=== PATIENT | female | born 1960 | race American Indian/Alaskan Native ===

== ENCOUNTER 2018-03-19 06:13 | Observation (INO) | payer OTHER ==
[2018-03-17 12:05] LABS: Basophils # (Auto) 0.1 K/mm3 (0.0-0.1); Basophils % (Auto) 1.4 % (0.0-1.8); Eosinophils # (Auto) 0.1 K/mm3 (0.0-0.4); Eosinophils % (Auto) 2.6 % (0.0-4.3); Hematocrit 38.8 % (30.3-42.9); Hemoglobin 12.6 gm/dl (10.1-14.3); Lymphocytes # (Auto) 2.5 K/mm3 (1.2-5.4); Lymphocytes % (Auto) 50.3 % (13.4-35.0); Mean Corpuscular HGB Conc 33 % (30-34); Mean Corpuscular Volume 90 fl (79-97); Monocytes # (Auto) 0.5 K/mm3 (0.0-0.8); Monocytes % (Auto) 9.9 % (0.0-7.3); Platelet Count 208 K/mm3 (140-440); Red Blood Count 4.33 M/mm3 (3.65-5.03); Red Cell Distribution Width 13.9 % (13.2-15.2)
--- NOTE | 2018-03-17 12:08 | Anesthesia Consultation ---
Anesthesia Consult and Med Hx Date of service: 03/19/18 - Airway Anesthetic Teeth Evaluation: Good ROM Head & Neck: Adequate Mental/Hyoid Distance: Adequate Mallampati Class: Class II Intubation Access Assessment: Good - Pulmonary Exam CTA: Yes - Cardiac Exam Cardiac Exam: No Murmur - Pre-Operative Health Status ASA Pre-Surgery Classification: ASA2 Proposed Anesthetic Plan: General Nerve Block: PEC - Pulmonary Hx Smoking: No Hx Sleep Apnea: No (JADIEL PRE SCREEN LOW RISK) - Cardiovascular System Hx Hypertension: No - Other Systems Hx Cancer: Yes
[2018-03-17 12:19] LABS: BUN/Creatinine Ratio 13; Blood Urea Nitrogen 9 mg/dL (7-17); Calcium 9.6 mg/dL (8.4-10.2); Hemolysis Index 13
[2018-03-19] MEDS ORDERED: NEURONTIN ONE (06:32)
[2018-03-19] MEDS ORDERED: LACTATED RINGERS 1,000 ML ONE (06:32)
[2018-03-19] MEDS ORDERED: VERSED ONE (06:33)
[2018-03-19] MEDS ORDERED: NACL BACTERIOSTATIC INFILTRATI ONE (06:38)
[2018-03-19] MEDS ORDERED: DECADRON ONE (06:52)
[2018-03-19] MEDS ORDERED: MARCAINE 0.25% INFILTRATI ONE (06:52)
[2018-03-19] MEDS ORDERED: XYLOCAINE 1% 20 mL ONE (06:52)
[2018-03-19] MEDS ORDERED: PEPCID PO NR (07:00)
[2018-03-19] MEDS ORDERED: NEURONTIN PO NR ×2 (07:00)
[2018-03-19] MEDS ORDERED: ANCEF/STERILE WATER 2 GM/20 ML IV NR (07:00)
[2018-03-19] MEDS ORDERED: LACTATED RINGERS 1,000 ML IV SCH ×2 (07:00→11:00)
[2018-03-19] MEDS ORDERED: VERSED IV NR (07:00)
[2018-03-19] MEDS ORDERED: SUBLIMAZE ONE (07:08)
[2018-03-19] MEDS ORDERED: DIPRIVAN 10 MG/ML IV ONE (07:09)
[2018-03-19] MEDS ORDERED: ZEMURON IV ONE (07:18)
[2018-03-19] MEDS ORDERED: QUELICIN ONE (07:18)
[2018-03-19] MEDS ORDERED: ZOFRAN ONE (07:18)
[2018-03-19] MEDS ORDERED: XYLOCAINE MPF 2% ONE (07:18)
[2018-03-19] MEDS ORDERED: ANCEF ONE (07:45)
[2018-03-19] MEDS ORDERED: GENTAMICIN ONE (07:45)
[2018-03-19] MEDS ORDERED: BACITRACIN ONE (07:46)
[2018-03-19] MEDS ORDERED: METHYLENE BLUE ONE (07:46)
[2018-03-19] MEDS ORDERED: NACL ONE (07:46)
[2018-03-19] MEDS ORDERED: ZOFRAN IV PRN ×2 (08:55→10:55)
[2018-03-19] MEDS ORDERED: NACL 0.9% 1000 ML IR ONE (09:00)
[2018-03-19] MEDS ORDERED: GENTAMICIN IV ONE (09:00)
[2018-03-19] MEDS ORDERED: ANCEF IV ONE ×2 (09:00)
[2018-03-19] MEDS ORDERED: NACL 0.9% IR ONE (09:00)
--- NOTE | 2018-03-19 10:50 | Short Stay Summary ---
Short Stay Documentation Date of service: 03/19/18 - History H&P: obtained from office - Allergies and Medications Current Medications: Allergies PORK Adverse Reaction (Uncoded 03/19/18 06:42) Vomiting Home Medications Medication Instructions Recorded Confirmed Last Taken Type Ascorbic Acid [Vitamin C] 1,000 mg PO DAILY 03/13/18 03/13/18 03/18/18 History Multivit-Min/Iron/Folic/Lutein 1 each PO DAILY 03/13/18 03/13/18 03/18/18 History [Centrum Silver Women Tablet] Active Medications Cefazolin Sodium (Ancef/Sterile Water 2 Gm/20 Ml) 2 gm IV PREOP NR Stop: 03/19/18 23:59 Fentanyl (Sublimaze) 50 mcg IV Q5MIN PRN PRN Reason: Pain , Severe (7-10) Stop: 03/19/18 16:00 Gabapentin (Neurontin) 600 mg PO PREOP NR Stop: 03/19/18 23:45 Last Admin: 03/19/18 06:52 Dose: 600 mg Documented by: Lactated Ringer's (Lactated Ringers) 1,000 mls @ 100 mls/hr IV DIRECT FÉLIX Last Admin: 03/19/18 06:45 Dose: 100 mls/hr Documented by: Ondansetron HCl (Zofran) 4 mg IV ONCE PRN PRN Reason: Nausea And Vomiting - Brief post op/procedure progress note Date of procedure: 03/19/18 Pre-op diagnosis: Multicentric right breast cancer Post-op diagnosis: same Procedure: Right total mastectomy with SLNB Anesthesia: GETA Findings: Left total mastectomy specimen with 2 clips present; x5 SLNs negative on frozen section of pathology Surgeon: LUZ ELENA CHURCHILL Estimated blood loss: minimal Pathology: list (rigth total mastectomy; x5 SLNs) Specimen disposition: to lab Condition: stable - Disposition Condition at discharge: Good Disposition: DC/TX-02 SHRT-TRM GEN HOSP IP Short Stay Discharge Plan Activity: other (no heavy lifting) Diet: regular Wound: keep clean and dry, other Follow up with: ROBERTH MCINTOSH MD [Primary Care Provider] - 7 Days LUZ ELENA CHURCHILL MD [Staff Physician] - 7 Days
[2018-03-19] MEDS ORDERED: REGLAN PO PRN (10:55)
[2018-03-19] MEDS ORDERED: SODIUM CHLORIDE FLUSH SYRINGE 10 ML IV PRN (10:55)
[2018-03-19] MEDS ORDERED: BENADRYL PO PRN (10:55)
[2018-03-19] MEDS ORDERED: TYLENOL PO PRN (10:55)
--- NOTE | 2018-03-19 10:55 | Operative Report ---
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 Anesthesia: Gen. Findings: Right breast clips present within right total mastectomy. 5 sentinel lymph nodes identified and negative for malignancy on frozen section of pathology Complications: None Drains: per plastic surgery Estimated blood loss: Minimal Disposition: PACU in good condition Indications for operative procedure: This is a 57-year-old lady with multicentric stage I right breast cancer of the upper inner and lower inner quadrant, [id number] ER/CO positive. Recommendations were to proceed with right mastectomy given multicentric right breast cancer. She wished to proceed with the above procedure as well as immediate tissue signal manager placement. Procedure in detail: Anesthesia placed right pectoral muscle block prior to going to the operating room. The patient was taken to the operating room and was placed supine. Gen. anesthesia was administered. The right nipple was injected with radioisotope. Right chest and axilla was prepped and draped in the normal sterile operative fashion. Timeout was performed. Typical mastectomy incision marking was made. Attention was taken towards the right breast. A gamma probe was inserted into the axilla to identify the sentinel lymph node location with no uptake noted. A skin incision was made with a 10 blade knife and dissection taken down to the subcutaneous tissues. First began raising of the superior flap to the level of t he clavicle superiorly and posteriorly to the pectoralis muscle. Followed by raising of the medial flap to the level of the sternum and posteriorly to the pectoralis muscle. Followed by raising of the lateral flap to the level of the latissimus dorsi muscle and taken down posteriorly. The gamma probe was inserted into the axilla, the axillary fascia was opened and 5 sentinel lymph nodes were identified with the gamma probe that were dissected free and sent to pathology. All remaining counts were less than 10% of the highest SLN. All 5 SLNs were negative for malignancy on frozen section of pathology. Then proceeded with raising of the inferior flap to the level of the inframammary fold taken posterior to the pectoralis muscle. The mastectomy/breast was removed from the pectoralis muscle without incident. The specimen was appropriately marked and sent to radiology with findings of breast clips present and sent to pathology. Hemostasis was noted. The chest wall was irrigated and suctioned. Hemostasis was obtained and plastic surgery then proceeded with tissue signal manager placement. She tolerated surgery very well.
[2018-03-19] MEDS ORDERED: MORPHINE IV PRN (10:57)
[2018-03-19] MEDS ORDERED: COLACE PO SCH (11:00)
[2018-03-19] MEDS ORDERED: BLOXIVERZ ONE (11:11)
[2018-03-19] MEDS ORDERED: ROBINUL ONE (11:11)
--- NOTE | 2018-03-19 11:24 | Mammography Report ---
Operative specimen mammogram: The specimen has a right label. There is a large single specimen with some smaller fragments. 2 biopsy markers are contained in the main specimen as well as an adjacent lobulated nodule.
--- NOTE | 2018-03-19 11:55 | Post Operative Note ---
Pre-op diagnosis: right breast cancer Post-op diagnosis: same Findings: right mastectomy defect Procedure: right breast reconstruction with fixed wing aircraft flight engineer and mesh Anesthesia: GETA Surgeon: CLAUDIO MARTINEZ Estimated blood loss: minimal Pathology: none Condition: stable Disposition: PACU
[2018-03-19] MEDS: SUBLIMAZE IV PRN ×2 (12:00→12:10)
--- NOTE | 2018-03-19 12:04 | Operative Report ---
Operative Report Operative Report: PREOPERATIVE DIAGNOSIS: RIGHT Breast Cancer POSTOPERATIVE DIAGNOSIS: RIGHT Breast Cancer PROCEDURE: 1. RIGHT breast reconstruction using tissue sheet metal apprentice in the PRE pectoral position, CPT code 97021-78 2. RIGHT breast reconstruction using biological mesh, FlexHD, CPT code 14301- 50 3. Application of ALENA negative pressure wound vac device to bilateral breasts for postoperative wound healing, CPT code 71909 SURGEON: Eugene Resendiz MD MODEL AND PATTERN SUPERVISOR: none ANESTHESIA: General OPERATIVE INDICATIONS: This is a 57 year old female with a history of RIGHT sided breast cancer, was referred to me by DR. CHURCHILL for breast reconstruction. The patient was planning on undergoing RIGHT mastectomy and desired reconstruction. A discussion was held with the patient regarding the different surgical options including: immediate vs delayed reconstruction, autologous vs implant based reconstruction as well as the risks and benefits of all options. Plan was to move forward with right breast recon with sheet metal apprentice. OPERATIVE DETAILS: After informed consent was obtained, patient was brought to the operating room and placed on the operating room table. Preoperative antibiotics and general anesthesia were administered. The patient was prepped and draped in the usual sterile fashion and a timeout called to verify the correct patient and procedure. began her portion of the operation which will be dictated separately. I entered the room and assessed the defect and began my reconstruction. I began by measuring the base width and then choosing the appropriate sized sheet metal apprentice after examining the defect. I then created a composite implant using the tissue sheet metal apprentice and biologic mesh with a wrap in order to cover the implant and provide a pocket while in the PRE-PECTORAL space. This was done on the back table. We used MENTOR ARTUORA EXPANDERS, High profile smooth 475cc, and wrapped with FlexHD 16 x 20 mesh. MANAGER LOAN SERIAL NUMBER: [id number] FLEXHD SERIAL NUMBER: [id number] The sheet metal apprentice was completely deflated and then inflated with methylene blue tinted saline to a volume of 200cc. The fully wrapped implant was soaked in betadine and triple antibiotic irrigation. I then placed the composite implant on the pectoralis muscle and situated it in the correct position and then anchored it using the suture tabs and spanning sutures. Everything was irrigated again and hemostasis achieved. A 19French and 15 [place] round channel drain was placed for postop drainage. The skin was then closed with 3-0 monocryl deep dermals and then a 2-0 monocryl barbed suture in a subcuticular pattern. A ALENA negative pressure wound vac device was used for coverage of the incisions to prevent postoperative wound healing complications. The patient tolerated the procedure well and was moved to the PACU in stable condition. ESTIMATED BLOOD LOSS: less than 50ml COMPLICATIONS: none SPECIMENS: See Dr. CHURCHILL dictation. TOTAL FILL VOLUME EXPANDERS: 200 cc. FINDINGS: RIGHT mastectomy defect
[2018-03-19] MEDS: PERCOCET 5/325 PO PRN (17:04)
[2018-03-20] MEDS: PERCOCET 5/325 PO PRN (06:34)
--- NOTE | 2018-03-20 08:08 | Progress Note ---
Assessment and Plan This is a 57 year old lady with Stage I multicentric right breast cancer POD#1 right total mastectomy with SLNB. 1. No acute events overnight. 2. Right chest incision healing well. 3. OOB to hallway. 4. GABRIEL drain education. 5. D/C planning for today. Subjective Date of service: 03/20/18 Principal diagnosis: Multicentric right breast cancer Interval history: POD#1 right total mastectomy with SLNB Objective - Constitutional Vitals: Vital Signs - 12hr 03/19/18 03/19/18 03/19/18 20:30 20:58 23:54 Temperature 98.0 F Pulse Rate 68 Respiratory 18 18 18 Rate Blood Pressure Blood Pressure 99/50 [Left] O2 Sat by Pulse 92 Oximetry 03/20/18 03/20/18 03/20/18 00:18 05:13 06:34 Temperature 98.3 F 98.4 F Pulse Rate 67 68 Respiratory 20 20 18 Rate Blood Pressure 102/53 97/47 Blood Pressure [Left] O2 Sat by Pulse 95 96 Oximetry General appearance: Present: no acute distress - EENT Eyes: PERRL ENT: hearing intact, clear oral mucosa Ears: bilateral: normal - Neck Neck: supple, normal ROM - Respiratory Respiratory effort: normal Respiratory: bilateral: CTA - Breasts Breasts: other (left chest PICCO dressing in place; GABRIEL drains to bulb suction) - Cardiovascular Rhythm: regular Extremities: no ischemia, pulses intact, pulses symmetrical, No edema, normal temperature, normal color, Full ROM - Gastrointestinal General gastrointestinal: Present: soft, non-tender, non-distended Rectal Exam: deferred - Genitourinary Female genitourinary: deferred - Integumentary Integumentary: clear, warm, dry - Musculoskeletal Musculoskeletal: strength equal bilaterally - Neurologic Neurologic: CNII-XII intact, moves all extremities - Psychiatric Psychiatric: appropriate mood/affect, intact judgment & insight, memory intact, cooperative - Labs CBC & Chem 7: 03/17/18 11:45 03/17/18 11:45 Medications & Allergies - Medications Allergies/Adverse Reactions: Allergies PORK Adverse Reaction (Uncoded 03/19/18 06:42) Vomiting Home Medications: Home Medications Medication Instructions Recorded Confirmed Last Taken Type Ascorbic Acid [Vitamin C] 1,000 mg PO DAILY 03/13/18 03/13/18 03/18/18 History Multivit-Min/Iron/Folic/Lutein 1 each PO DAILY 03/13/18 03/13/18 03/18/18 His tory [Centrum Silver Women Tablet] Active Medications: Generic Name Dose Route Start Last Admin Trade Name Freq PRN Reason Stop Dose Admin Acetaminophen 650 mg 03/19/18 10:55 Tylenol PO Q6H PRN Pain MILD(1-3)/Fever >100.5/MCMULLEN Diphenhydramine HCl 25 mg 03/19/18 10:55 Benadryl PO Q8H PRN Itching Docusate Sodium 100 mg 03/19/18 11:00 Colace PO BID FÉLIX Lactated Ringer's 1,000 mls @ 125 mls/hr 03/19/18 11:00 03/19/18 14:06 Lactated Ringers IV 125 mls/hr DIRECT FÉLIX Administration Metoclopramide HCl 10 mg 03/19/18 10:55 Reglan PO Q6H PRN Nausea And Vomiting Morphine Sulfate 2 mg 03/19/18 10:57 03/19/18 23:54 Morphine IV 2 mg Q4H PRN Administration Pain, Moderate (4-6) Ondansetron HCl 4 mg 03/19/18 08:55 Zofran IV ONCE PRN Nausea And Vomiting Ondansetron HCl 4 mg 03/19/18 10:55 Zofran IV Q8H PRN N/V unrelieved by Reglan Oxycodone/Acetaminophen 1 tab 03/19/18 10:55 03/20/18 06:34 Percocet 5/325 PO 1 tab Q6H PRN Administration Pain, Moderate (4-6) Sodium Chloride 10 ml 03/19/18 10:55 Sodium Chloride Flush Syringe 10 Ml IV PRN PRN LINE FLUSH
[2018-03-20 14:45] VITALS: BP 106/55
== END 2018-03-20 14:10 | disposition home or self-care (01) ==
LOC: OR 06:13 → OB 10:55
PROVIDERS: ADMIT Surgery; ATTEND Surgery
DX: C50.211 Malignant neoplasm of upper-inner quadrant of right female breast (principal); C50.311 Malignant neoplasm of lower-inner quadrant of right female breast
CPT/HCPCS: 15777; 19303; 19357; 36415; 38500; 38792; 64450; 76098; 78800; 80048; 85025; 88307; 88309; 88331; 88333; 88342; 96374; 96375; 96376; A9541; C1789; G0378; J0330; J0690; J1100; J1580; J2250; J2270; J2405; J2704; J2710; J3010; J7030; J7120; Q4128; Q9968; 88341

== ENCOUNTER 2018-08-12 08:59 | Outpatient (CLI) | payer OTHER ==
--- NOTE | 2018-08-12 09:37 | Mammography Report ---
Left mammogram: Cancer survivor with right mastectomy. 2 views of the left breast demonstrates an aggregate of slightly pleomorphic appearing calcifications in the upper-outer left breast. The breast pattern otherwise is that of patchy fibroglandular tissue in a generally unremarkable pattern. No definable mass nor architectural distortion noted. CAD used. Impression: Left breast calcifications requiring additional evaluation. Recommendation: The patient's prior studies are being requested before final recommendation. BI-RADS CATEGORY: 0 = Needs additional imaging evaluation ACR BI-RADS MAMMOGRAPHIC CODES: 0 = Needs additional imaging evaluation; 1 = Negative; 2 = Benign; 3 = Probably benign; 4 = Suspicious; 5 = Malignant; 6 = Known biopsy-proven malignancy COMMENT: 1. Dense breast tissue, i.e., adenosis, fibrocystic changes, etc., may obscure an underlying neoplasm. 2. Approximately 10% of cancers are not detected with mammography. 3. A negative mammography report should not delay biopsy if a clinically suspicious mass is present.
== END 2018-08-12 09:00 | disposition home or self-care (01) ==
LOC: SPVWC 08:59
PROVIDERS: ATTEND Surgery
DX: Z12.31 Encounter for screening mammogram for malignant neoplasm of breast (principal)

== ENCOUNTER 2019-03-23 15:15 | Outpatient (CLI) | payer OTHER ==
--- NOTE | 2019-03-24 08:34 | Mammography Report ---
DIGITAL DIAGNOSTIC MAMMOGRAM WITH CAD, 03/23/2019 INDICATION: History of right breast cancer status post right mastectomy and status post left breast a ugmentation. TECHNIQUE: Digital left mammographic imaging was performed. This examination was interpreted with the benefit of Computer-aided Detection analysis. COMPARISON: 08/12/2018 FINDINGS: Breast Density: There are scattered fibroglandular densities. A subglandular has been placed since the last exam. There is no evidence of dominant mass or architec tural distortion in the left breast. A group of largely punctate punctate and amorphous calcification s in the outer breast on the CC view are not imaged on MLO views. The calcifications appear to be few er in number than on the last exam. IMPRESSION: Probably benign outer calcifications. Recommend 3 month follow-up diagnostic mammogram wi th magnification views. Follow up recommendation: Short term follow up in 3 months. BI-RADS Category 3: Probably Benign. Followup in 3 months. A "normal" or negative report should not discourage follow up or biopsy of a clinically significant f inding. A written summary of these findings will be mailed to the patient. The patient will be entered into a mammography reporting system which will generate a reminder letter for the patient's next appointmen t at the appropriate interval. According to the [employer], yearly mammograms are recommended starting at age 40 and continuing as long as a woman is in good health. Breast MRI is recommended for women with an junaid roximately 20-25% or greater lifetime risk of breast cancer, including women with a strong family his tory of breast or ovarian cancer and women who have been treated for Hodgkin's disease. Signer Name: Eric Robledo MD Signed: 03/24/2019 8:29 AM Workstation Name: [id number]
== END 2019-03-23 15:16 | disposition home or self-care (01) ==
LOC: SPVWC 15:15
PROVIDERS: ATTEND Surgery
DX: R92.8 Other abnormal and inconclusive findings on diagnostic imaging of breast (principal); Z85.3 Personal history of malignant neoplasm of breast

== ENCOUNTER 2019-08-18 08:45 | Outpatient (CLI) | payer OTHER ==
--- NOTE | 2019-08-18 11:25 | Mammography Report ---
DIGITAL DIAGNOSTIC MAMMOGRAM WITH CAD, 08/18/2019 INDICATION: The patient has a history of right breast cancer treated with mastectomy. The patient re ports no new breast symptoms on today's evaluation. However, it appears this is a short-term follow-u p from prior mammogram of 03/23/2019. TECHNIQUE: Digital left mammographic imaging was performed. Magnification views were obtained. This examination was interpreted with the benefit of Computer-aided Detection analysis. COMPARISON: 03/23/2019, 08/12/2018 FINDINGS: Breast Density: There are scattered areas of fibroglandular density. There is a 1.1 cm cluster of heterogeneous slightly pleomorphic calcifications in the upper outer lef t breast at the 1:00 far posterior location. Prepectoral implant is present. IMPRESSION: Follow up recommendation: Biopsy BI-RADS Category 4: Suspicious for Malignancy. Left breast calcifications at the 1:00 position poste rior depth which are moderately suspicious for malignancy. Stereotactic guided biopsy may be difficul t due to their far posterior position and adjacent implant. Needle localization and surgical excision alternatively could be performed. A "normal" or negative report should not discourage follow up or biopsy of a clinically significant f inding. A written summary of these findings will be mailed to the patient. The patient will be entered into a mammography reporting system which will generate a reminder letter for the patient's next appointmen t at the appropriate interval. According to the [employer], yearly mammograms are recommended starting at age 40 and continuing as long as a woman is in good health. Breast MRI is recommended for women with an junaid roximately 20-25% or greater lifetime risk of breast cancer, including women with a strong family his tory of breast or ovarian cancer and women who have been treated for Hodgkin's disease. Signer Name: Becca Vicente MD Signed: 08/18/2019 11:20 AM Workstation Name: [id number]
== END 2019-08-18 08:46 | disposition home or self-care (01) ==
LOC: SPVWC 08:45
PROVIDERS: ATTEND Surgery
DX: R92.1 Mammographic calcification found on diagnostic imaging of breast (principal); Z90.11 Acquired absence of right breast and nipple

== ENCOUNTER 2019-10-07 06:47 | Day surgery (SDC) | payer OTHER ==
[~2019-10-07 06:47] MED LIST: CELECOXIB 200 MG CAP PO NR; GABAPENTIN 300 MG CAP PO NR; LACTATED RINGERS 1,000 ML IV SCH; MAGNESIUM OXIDE 400 MG TAB PO SCH; MIDAZOLAM 2 MG/2 ML INJ IV NR; SODIUM CHLORIDE 0.9% IRR 1,500 ML BOTTLE IR ONE; ceFAZolin/Water 2 GM/20 ML 2 GM/20 ML SYRINGE IV NR
[2019-10-07] MEDS ORDERED: LIDOCAINE (1%) 10 MG/1 ML VIAL 20 ML MDV ONE ×2 (07:43→10:17)
[2019-10-07] MEDS ORDERED: HYDROmorphone 1 MG/1 ML INJ IV PRN (09:31)
--- NOTE | 2019-10-07 09:31 | Anesthesia Consultation ---
Anesthesia Consult and Med Hx Date of service: 10/07/19 - Airway Anesthetic Teeth Evaluation: Good ROM Head & Neck: Adequate Mental/Hyoid Distance: Adequate Mallampati Class: Class II Intubation Access Assessment: Probably Good (previous easy intubation with MAC 3) - Pulmonary Exam CTA: Yes - Cardiac Exam Cardiac Exam: RRR - Pre-Operative Health Status ASA Pre-Surgery Classification: ASA2 Proposed Anesthetic Plan: General - Pulmonary Hx Smoking: No Hx Respiratory Symptoms: No Hx Sleep Apnea: No (JADIEL PRE SCREEN LOW RISK) - Cardiovascular System Hx Hypertension: No Hx Heart Attack/AMI: No Hx Percutaneous Transluminal Coronary Angioplasty (PTCA): No - Central Nervous System CVA: No Hx Psychiatric Problems: No - Gastrointestinal Hx Gastroesophageal Reflux Disease: No - Endocrine Hx Renal Disease: No Hx Liver Disease: No Hx Insulin Dependent Diabetes: No Hx Non-Insulin Dependent Diabetes: No Hx Thyroid Disease: No - Other Systems Hx Cancer: Yes (hx breast ca s/p resection, no chemo) Hx Obesity: Yes (BMI 33) - Additional Comments Anesthesia Medical History Comments: No hx anesthetic complications.
--- NOTE | 2019-10-07 09:31 | Anesthesia Day of Surgery ---
Anesthesia Day of Surgery - Day of Surgery Patient Examined: Yes Patient H&P Reviewed: Yes Patient is NPO: Yes
--- NOTE | 2019-10-07 10:10 | Mammography Report ---
LEFT BREAST NEEDLE LOCALIZATION USING X-RAY GUIDANCE The procedure was explained to the patient and informed consent obtained. PROCEDURE: Using 5 mL of 1% buffered lidocaine, a 25 gauge needle and x-ray guidance, the left breas t pleomorphic calcifications were localized with standard needle/wire technique. There were no immedi ate complications. INTERPRETATION: 2 images made during the procedure demonstrate the needle to be properly positioned. IMPRESSION: Successful left breast lesion localization as described above. Thank you for allowing us to participate in the care of your patient. Signer Name: Lloyd Brower Jr, MD Signed: 10/07/2019 10:06 AM Workstation Name: [id number]
[2019-10-07] MEDS ORDERED: METHYLENE BLUE 50 MG/10 ML AMP ONE (10:17)
[2019-10-07] MEDS ORDERED: SODIUM CHLORIDE P/F VIAL 10 ML 0 ML ONE (10:17)
[2019-10-07] MEDS ORDERED: BUPIVACAINE/PF (0.25%) 2.5 MG/ML 30 ML VIAL INFILTRATI ONE (10:18)
--- NOTE | 2019-10-07 11:36 | Short Stay Summary ---
Short Stay Documentation Date of service: 10/07/19 - History H&P: obtained from office - Allergies and Medications Current Medications: Allergies Pork/Porcine Containing Products Allergy (Verified 09/25/19 11:51) Vomiting Home Medications Medication Instructions Recorded Confirmed Last Taken Type Ascorbic Acid [Vitamin C] 1,000 mg PO DAILY 03/13/18 09/25/19 10/05/19 History Multivit-Min/Iron/Folic/Lutein 1 each PO DAILY 03/13/18 09/25/19 10/05/19 History [Centrum Silver Women Tablet] Anastrozole [Arimidex] 1 mg PO DAILY 09/25/19 09/25/19 10/05/19 History oxyCODONE /ACETAMINOPHEN [Percocet 1 tab PO Q6HR PRN #15 tablet 10/07/19 Unknown Rx 5/325] Active Medications Celecoxib (Celebrex) 200 mg PO PREOP NR Stop: 10/07/19 21:00 Last Admin: 10/07/19 09:39 Dose: 200 mg Documented by: Gabapentin (Gabapentin) 600 mg PO PREOP NR Stop: 10/07/19 21:00 Last Admin: 10/07/19 09:39 Dose: 600 mg Documented by: Hydromorphone HCl (Dilaudid) 0.5 mg IV Q10MIN PRN PRN Reason: Pain , Severe (7-10) Stop: 10/07/19 23:00 Cefazolin Sodium (Ancef/Sterile Water 2 Gm/20 Ml) 2 gm in 20 mls @ 80 mls/hr IV PREOP NR; Protocol Stop: 10/07/19 23:59 Lactated Ringer's (Lactated Ringers) 1,000 mls @ 100 mls/hr IV DIRECT FÉLIX Stop: 10/07/19 23:59 Last Admin: 10/07/19 09:50 Dose: 100 mls/hr Documented by: Magnesium Oxide (Mag-Ox) 400 mg PO PREOP FÉLIX Stop: 10/07/19 21:00 Last Admin: 10/07/19 09:39 Dose: 400 mg Documented by: Midazolam HCl (Versed) 2 mg IV PREOP NR Stop: 10/07/19 21:00 Last Admin: 10/07/19 10:09 Dose: 2 mg Documented by: - Brief post op/procedure progress note Date of procedure: 10/07/19 Pre-op diagnosis: Suspicious upper outer quadrant microcalcifications Post-op diagnosis: same Procedure: Left needle location breast excisional biopsy of the upper outer quadrant Anesthesia: GETA Findings: Left wire and calcifications present Surgeon: LUZ ELENA CHURCHILL Estimated blood loss: minimal Pathology: list Specimen disposition: to lab Condition: stable - Disposition Condition at discharge: Good Disposition: DC- TO HOME OR SELFCARE Short Stay Discharge Plan Activity: other (no heavy lifting) Diet: regular Wound: keep clean and dry (may shower in 48 hours; no baths, pools or lakes; do not rub or scrub incision) Follow up with: ROBERTH MCINTOSH MD [Primary Care Provider] - 7 Days LUZ ELENA CHURCHILL MD [Staff Physician] - 7 Days Prescriptions: oxyCODONE /ACETAMINOPHEN [Percocet 5/325] 1 tab PO Q6HR PRN #15 tablet PRN Reason: Pain
--- NOTE | 2019-10-07 11:43 | Operative Report ---
Operative Report Operative Report: Operative Report: October 07, 2019 Preoperative diagnosis: Left breast suspicious microcalcifications of the upper outer quadrant Postoperative diagnosis: Same Procedure: Left needle localization excisional breast biopsy Surgeon: Cristy Flores MD Artificial Glass Eye Maker: Jean Velazquez MD Anesthesia: General Findings: Left wire and calcifications present within radiograph Complications: None EBL: Minimal Disposition: PACU in good condition Indications for operative procedure: This is a 59 year old lady with a personal history of right breast cancer status post right mastectomy with tissue plug and mold finisher placement later exchanged for implant placement. Patient later underwent left im plant placement for breast asymmetery. Recent diagnostic left mammogram with suspicious microcalcifications of the upper outer quadrant. Stereotatic breast biopsy attempted but unsuccessful given location of calcifications and presence of implant. Recommendations are to proceed with left breast needle localization excisional biopsy to rule out malignancy. Patient understands the risk of implant rupture given calcifications are located posteriorly. Radiology to place wire to localize microcalcifications for excision. She wished to proceed with the above procedure. Procedure in detail: The patient was taken to radiology for wire placement for localization of known area of calcifications. Patient was then taken to the operating room. Gen. anesthesia was administered. Left breast and axilla were prepped and draped in the normal sterile operative fashion. The wire was identified. Timeout was performed. Attention was taken towards the left breast. Lateral breast incision around 12/1:00 position was made with a 15 blade knife and dissection taken down to subcutaneous tissues. First began raising of the superior flap with removal of the wire from the skin with dissection take down to posteriorly, followed by raising of the inferior flap, medial flap and lateral flap with all flaps taken down posteriorly past the wire. The breast area of concern was appropriately removed posteriorly with the aid of the Bovie cautery. The implant was not encountered. The wire was not encountered. Specimen was marked and then sent to pathology and radiology; radiograph specimen with wire and calcifications present. Breast cavity was irrigated and hemostasis was obtained. The posterior deep breast tissues were approximated and closed using interrupted 3-0 Vicryl. The subcutaneous tissues were approximated and closed using interrupted 3-0 Vicryl followed by closing of the skin with a running 4-0 Monocryl and skin affix. The patient tolerated surgery very well and she was awaken from anesthesia without any complication and transported to PACU in good condition.
[2019-10-07] MEDS ORDERED: LIDOCAINE MPF (2%) 20 MG/1 ML VIAL 5 ML ONE (11:53)
[2019-10-07] MEDS ORDERED: PHENYLEPHRINE/NS 1,000 MCG/10 ML SYRINGE (OR USE) IV ONE ×2 (11:53→12:34)
[2019-10-07] MEDS ORDERED: dexAMETHasone 20 MG/5 ML VIAL ONE (11:53)
[2019-10-07] MEDS ORDERED: ONDANSETRON 4 MG/2 ML INJ ONE (11:53)
[2019-10-07] MEDS ORDERED: fentaNYL 100 MCG/2 ML INJ ONE (11:53)
[2019-10-07] MEDS ORDERED: propofoL 200 MG/20 ML VIAL IV ONE (11:54)
[2019-10-07] MEDS ORDERED: GLYCOPYRROLATE 0.4 MG/2 ML INJ ONE (12:30)
[2019-10-07] MEDS ORDERED: SODIUM CHLORIDE 0.9% IRR 1,500 ML BOTTLE IR ONE (13:35)
--- NOTE | 2019-10-07 13:58 | Mammography Report ---
BREAST SPECIMEN RADIOGRAPH HISTORY: Left breast calcifications, breast cancer COMPARISON: Needle localization performed earlier the same day. FINDINGS/IMPRESSION: The submitted radiograph or radiographs demonstrate(s) the presence of the previously described pleom orphic calcifications and the distal aspect of the localization wire within the excisional biopsy as expected. Signer Name: Lloyd Brower Jr, MD Signed: 10/07/2019 1:54 PM Workstation Name: [id number]
[2019-10-07] MEDS ORDERED: oxyCODONE /ACETAMINOPHEN 5-325MG TAB ONE (14:42)
[2019-10-07] MEDS ORDERED: oxyCODONE /ACETAMINOPHEN 5-325MG TAB PO ONE (14:42)
[2019-10-07 14:50] VITALS: BP 124/66
--- NOTE | 2019-10-07 16:22 | Post Anesthesia Evaluation ---
- Post Anesthesia Evaluation Patient Participated: Yes Airway Patent: Yes Stable Respiratory Function: Yes Nausea/Vomiting: No Temp > 96.8F: Yes Pain Manageable: Yes Adequeate Hydration: Yes Anesthesia Complications: No
== END 2019-10-07 16:05 | disposition home or self-care (01) ==
LOC: OR 06:47
PROVIDERS: ATTEND Surgery
DX: R92.0 Mammographic microcalcification found on diagnostic imaging of breast (principal); Z11.59 Encounter for screening for other viral diseases; E66.9 Obesity, unspecified; Z85.3 Personal history of malignant neoplasm of breast; Z90.11 Acquired absence of right breast and nipple; Z98.890 Other specified postprocedural states; Z68.33 Body mass index [BMI] 33.0-33.9, adult; Z88.8 Allergy status to other drugs, medicaments and biological substances
CPT/HCPCS: 19125; 19281; 76098; 88307; J0690; J1100; J2250; J2370; J2405; J2704; J3010; J7120; U0003; 88305; Q9968

== ENCOUNTER 2020-03-29 09:23 | Outpatient (CLI) | payer OTHER ==
--- NOTE | 2020-03-29 10:14 | Mammography Report ---
DIGITAL DIAGNOSTIC MAMMOGRAM WITH CAD CONVENTIONAL, 03/29/2020 CLINICAL INFORMATION / INDICATION: Short-term follow-up left breast calcification removal. TECHNIQUE: Digital left mammographic imaging was performed. This examination was interpreted with the benefit of Computer-aided Detection analysis. COMPARISON: 08/18/19. FINDINGS: Breast Density: There are scattered areas of fibroglandular density. No dominant mass, suspicious calcifications or architectural distortion in the left breast. There are a few scattered benign calcifications in the left subareolar region. Grouped calcifications in the l eft upper outer quadrant have been removed with scarring at the site of excisional biopsy. No other change is seen. IMPRESSION: No mammographic evidence of malignancy. Follow up recommendation: Back to schedule. BI-RADS Category 2: Benign. A "normal" or negative report should not discourage follow up or biopsy of a clinically significant f inding. A written summary of these findings will be mailed to the patient. The patient will be entered into a mammography reporting system which will generate a reminder letter for the patient's next appointmen t at the appropriate interval. According to the [employer], yearly mammograms are recommended starting at age 40 and continuing as long as a woman is in good health. Breast MRI is recommended for women with an junaid roximately 20-25% or greater lifetime risk of breast cancer, including women with a strong family his tory of breast or ovarian cancer and women who have been treated for Hodgkin's disease. Signer Name: Colten Smyth MD Signed: 03/29/2020 10:10 AM Workstation Name: [id number]
== END 2020-03-29 09:24 | disposition home or self-care (01) ==
LOC: SPVWC 09:23
PROVIDERS: ATTEND Surgery
DX: R92.1 Mammographic calcification found on diagnostic imaging of breast (principal)

== ENCOUNTER 2020-09-01 10:01 | Outpatient (CLI) | payer OTHER ==
--- NOTE | 2020-09-02 08:01 | Mammography Report ---
DIGITAL SCREENING MAMMOGRAM WITH TOMOSYNTHESIS WITH CAD, 09/01/2020 CLINICAL INFORMATION / INDICATION: Routine Screening Mammography. TECHNIQUE: Digital left 2D and 3D mammography with tomosynthesis was obtained in the craniocaudal an d mediolateral oblique projections. Computer-Aided Detection (CAD) analysis was used for interpretat ion of this study. COMPARISON: 08/18/2019 FINDINGS: Breast Density: There are scattered areas of fibroglandular density. No dominant mass, suspicious calcifications, or architectural distortion in the left breast. Intact implant. IMPRESSION: No mammographic evidence of malignancy. Follow up recommendation: Routine yearly BI-RADS Category 2: Benign. A "normal" or negative report should not discourage follow up or biopsy of a clinically significant f inding. A written summary of these findings will be mailed to the patient. The patient will be entered into a mammography reporting system which will generate a reminder letter for the patient's next appointmen t at the appropriate interval. The [employer] recommends yearly mammograms starting at age 40 and continuing as l nancy as a woman is in good health. Breast MRI is recommended for women with an approximate 20-25% or greater lifetime risk of breast cancer, including women with a strong family history of breast or ova minor cancer or who have been treated for Hodgkin's disease. Signer Name: Marcus Block MD Signed: 09/02/2020 7:57 AM Workstation Name: [id number]
== END 2020-09-01 10:02 | disposition home or self-care (01) ==
LOC: SPVWC 10:01
PROVIDERS: ATTEND Surgery
DX: Z12.31 Encounter for screening mammogram for malignant neoplasm of breast (principal)